=== PATIENT | female | born 1975 | race American Indian/Alaskan Native ===

== ENCOUNTER 2017-04-25 13:12 | Emergency (ER) | payer OTHER, MEDICARE ==
[2017-04-25 13:13] VITALS: BMI 36.0
[2017-04-25 13:22] VITALS: O2SAT 98
[2017-04-25] MEDS ORDERED: Sodium Chloride 0.9% 1,000 ML IV ONE (13:30)
[2017-04-25] MEDS ORDERED: Sodium Chloride 0.9% 1,000 ML ONE (13:38)
[2017-04-25 13:48] VITALS: RESP 18; TEMP 98.4
[2017-04-25 13:49] LABS: BASO # 0.1 K/uL (0.0-0.2); BASO % 1.2 % (0.0-2.0); EOS # 0.4 K/uL (0.0-0.7); EOS % 3.7 % (0.0-4.0); HEMOGLOBIN 12.7 g/dL (11.0-16.0); LYMPH % 29.2 % (20.0-40.0); MEAN CELL VOLUME 85.2 fL (81.0-99.0); MEAN CORPUSCULAR HEMOGLOBIN 27.4 pg (27.0-31.0); MEAN CORPUSCULAR HGB CONC 32.2 g/dL (33.0-37.0); MEAN PLATELET VOLUME 7.9 fL (7.2-11.7); MONO # 0.4 K/uL (0.0-0.8); MONO % 4.2 % (0.0-10.0); NEUT # 6.3 K/uL (1.8-7.0); NEUT % 61.7 % (50.0-75.0); NRBC % 0.1 % (0.0-2.0); RBC 4.62 Mil/uL (3.80-5.20); RED CELL DISTRIBUTION WIDTH 16.1 % (11.5-14.5); WHITE BLOOD COUNT 10.2 K/uL (4.8-10.8)
--- NOTE | 2017-04-25 13:58 | C.PDOC ---
History Of Present Illness 41 y/o female presents to ED with complaints of intermittent dizziness and lightheadedness with associated intermittently darkened vision for 4 days. Patient states Sunday night she had a syncope episode and was taken by EMS to [facility] where she had labs, CT and EKG and was told potassium level was low. Patient was discharged home and instructed to supplement potassium but she states she has loss of appetite and not feeling well since being discharged from ED Sunday and came to ED today for further evaluation. Patient denies new episode of syncope, chest pain, palpitations, weakness or any other complaints at this time. Time Seen by Provider: 04/25/17 13:18 Chief Complaint (Nursing): Dizziness/Lightheaded History Per: Patient History/Exam Limitations: no limitations Onset/Duration Of Symptoms: Days Current Symptoms Are (Timing): Still Present Associated Symptoms Preceding Syncopal Episode: Lightheadedness Past Medical History Reviewed: Historical Data, Nursing Documentation, Vital Signs Vital Signs: Last Vital Signs Temp 98.4 F 04/25/17 13:30 Pulse 83 04/25/17 14:53 Resp 18 04/25/17 14:53 BP 126/74 04/25/17 14:53 Pulse Ox 98 04/25/17 15:00 - Medical History PMH: Depression Surgical History: Appendectomy Family History: States: No Known Family Hx - Social History Hx Alcohol Use: No Hx Substance Use: Yes - Immunization History Hx Influenza Vaccination: No Review Of Systems Except As Marked, All Systems Reviewed And Found Negative. Constitutional: Negative for: Fever, Chills, Weakness Cardiovascular: Negative for: Chest Pain, Palpitations Gastrointestinal: Negative for: Nausea, Vomiting, Diarrhea Neurological: Positive for: Dizziness Physical Exam - Physical Exam Appears: Non-toxic, No Acute Distress Skin: Normal Color, Warm Head: Atraumatic, Normacephalic Eye(s): bilateral: Normal Inspection Oral Mucosa: Moist Cardiovascular: Rhythm Regular, No Murmur Respiratory: Normal Breath Sounds, No Rales, No Rhonchi, No Wheezing Gastrointestinal/Abdominal: Soft, No Tenderness, No Guarding, No Rebound Extremity: Normal ROM, Capillary Refill (<2 seconds) Neurological/Psych: Oriented x3, Normal Speech ED Course And Treatment - Laboratory Results Result Diagrams: 04/25/17 13:46 04/25/17 13:46 Lab Interpretation: Normal ECG: Interpreted By Me ECG Rhythm: Sinus Rhythm ECG Interpretation: No Acute Changes O2 Sat by Pulse Oximetry: 98 (RA) Pulse Ox Interpretation: Normal Reevaluation Time: 15:00 Reassessment Condition: Unchanged (Patient remains asymptomatic in ED.) - Physician Consult Information Time Consulting Physician Contacted: 15:00 Physician Contacted: Lynne Mendoza Outcome Of Conversation: Patient scheduled to have an MRI tomorrow. She will follow up with her after this. Disposition Counseled Patient/Family Regarding: Studies Performed, Diagnosis, Need For Followup - Disposition Referrals: Lynne Mendoza MD [Staff Provider] - Disposition: HOME/ ROUTINE Disposition Time: 15:46 Condition: STABLE Additional Instructions: Keep your appointment for the MRI and follow up with Dr Mendoza tomorrow. Instructions: Dizziness (ED) - Clinical Impression Clinical Impression: Dizziness - Scribe Statement The provider has reviewed the documentation as recorded by the Scribe Noman Lord All medical record entries made by the Garyibe were at my direction and personally dictated by me. I have reviewed the chart and agree that the record accurately reflects my personal performance of the history, physical exam, medical decision making, and the department course for this patient. I have also personally directed, reviewed, and agree with the discharge instructions and disposition.
[2017-04-25 14:00] LABS: ALB/GLOB RATIO 1.1 (1.0-2.1); ALT/SGPT 32 U/L (9-52); AST/SGOT 9 U/L (14-36); BLOOD UREA NITROGEN 5 mg/dL (7-17); GFR AFRICAN-AMERICAN > 60; GFR NON-AFRICAN AMERICAN > 60
[2017-04-25 14:01] LABS: CALCIUM 8.6 mg/dl (8.6-10.4)
[2017-04-25 14:02] LABS: SQUAMOUS EPITHIAL 5 /hpf (0-5); URINE BILIRUBIN NEGATIVE (NEGATIVE); URINE BLOOD NEGATIVE (NEGATIVE); URINE CLARITY Clear (Clear); URINE COLOR Yellow (YELLOW); URINE GLUCOSE (UA) NORMAL (Normal); URINE LEUKOCYTE ESTERASE NEG Leu/uL (Negative); URINE NITRATE NEGATIVE (NEGATIVE); URINE PROTEIN NEGATIVE (NEGATIVE); URINE UROBILINOGEN NORMAL mg/dL (0.2-1.0)
[2017-04-25 14:17] LABS: FREE T4 0.95 ng/dL (0.78-2.19)
[2017-04-25 16:01] VITALS: BP 112/73; PULSE 75
--- NOTE | 2017-04-27 00:27 | CARD ---
APPROVED REPORT EKG Measurement Heart [id number] <Conclusion> Normal sinus rhythm Minimal voltage criteria for LVH, may be normal variant Borderline ECG
== END 2017-04-25 16:01 | disposition home or self-care (01) ==
LOC: C.ER 13:12
DX: R42 Dizziness and giddiness (principal)

== ENCOUNTER 2017-04-27 14:14 | Inpatient (IN) | payer OTHER, MEDICARE ==
[2017-04-27 14:14] VITALS: BMI 36.0
--- NOTE | 2017-04-27 14:50 | C.PDOC ---
History Of Present Illness 41 y/o female referred by Dr. Lynne Mendoza for recurrent syncope and dizziness. Patient reports syncopal episdoes x3. Notes she uses cannibis and cigarettes, which worsens dizziness. Patient was previously seen in [place] 04/23, normal workup and CT, (+) for cannibus use. Patient also evaluated in ER on 04/25/17 , with normal workup. 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 The examination is otherwise unremarkable. Denies fever, chills, nausea, vomiting, new extremity weakness or numbness, or other neurological complaints. Time Seen by Provider: 04/27/17 14:40 Chief Complaint (Nursing): Dizziness/Lightheaded History Per: Patient History/Exam Limitations: no limitations Onset/Duration Of Symptoms: Days, Persistent Current Symptoms Are (Timing): Still Present Fall Associated With With Symptoms: No Recent travel outside of the [place]: No Past Medical History Reviewed: Historical Data, Nursing Documentation, Vital Signs Vital Signs: Last Vital Signs Temp 98.4 F 04/27/17 14:20 Pulse 78 04/27/17 15:00 Resp 18 04/27/17 15:00 BP 111/60 04/27/17 15:00 Pulse Ox 99 04/27/17 16:55 - Medical History PMH: Depression Surgical History: Appendectomy Family History: States: Unknown Family Hx - Social History Hx Alcohol Use: No Hx Substance Use: Yes - Immunization History Hx Influenza Vaccination: No Review Of Systems Constitutional: Negative for: Fever, Chills Cardiovascular: Negative for: Chest Pain Respiratory: Negative for: Shortness of Breath Musculoskeletal: Negative for: Neck Pain Skin: Negative for: Rash Neurological: Positive for: Dizziness, Other (syncopal episodes ). Negative for : Weakness, Numbness, Headache Physical Exam - Physical Exam Appears: Non-toxic, No Acute Distress, Other (obese, black woman) Skin: Normal Color, Warm, Dry Head: Atraumatic, Normacephalic, Other (no exacerbation of dizziness with lateral head movement / rotation) Eye(s): bilateral: Normal Inspection, PERRL, EOMI Ear(s): Bilateral: Normal Nose: Normal Oral Mucosa: Moist Neck: Normal ROM, No Midline Cervical Tenderness, No Paracervical Tenderness, Supple Chest: Symmetrical Cardiovascular: Rhythm Regular Respiratory: Normal Breath Sounds, No Rales, No Rhonchi, No Wheezing Gastrointestinal/Abdominal: Soft, No Tenderness, No Guarding, No Rebound Back: Normal Inspection Extremity: Normal ROM, Capillary Refill (< 2 sec.) Neurological/Psych: Oriented x3, Normal Speech, Normal Cognition, Cerebellar Signs, Normal Motor, Normal Sensation, Other (neuro intact) ED Course And Treatment - Laboratory Results Result Diagrams: 04/27/17 15:11 04/27/17 15:11 Lab Interpretation: Normal (tox + THC) ECG: Interpreted By Me ECG Rhythm: Sinus Rhythm ECG Interpretation: Normal Rate From EC O2 Sat by Pulse Oximetry: 99 (RA) Pulse Ox Interpretation: Normal - Radiology CXR: Interpreted by Me CXR Interpretation: Yes: No Acute Disease Progress Note: d/w PMD Dr. Mendoza @ 1500, On Blue list- ok to adm to [facility] [employer] [facility]- Dr. Benji Lo Reevaluation Time: 16:49 Reassessment Condition: Improved Medical Decision Making Medical Decision Making: recurrent dizziness, syncope x 3, normal exam, + THC, smokes 1ppd consider cardiological etiology- tele obs Disposition Doctor Will See Patient In The: Hospital Counseled Patient/Family Regarding: Studies Performed, Diagnosis - Disposition Disposition: HOSPITALIZED Disposition Time: 16:55 Condition: GOOD - Clinical Impression Clinical Impression: Dizziness, Syncope - Scribe Statement The provider has reviewed the documentation as recorded by the Mendoza Clement Provider Attestation: All medical record entries made by the Mendoza were at my direction and personally dictated by me. I have reviewed the chart and agree that the record accurately reflects my personal performance of the history, physical exam, medical decision making, and the department course for this patient. I have also personally directed, reviewed, and agree with the discharge instructions and disposition.
[2017-04-27 15:16] LABS: BASO # 0.1 K/uL (0.0-0.2); BASO % 1.1 % (0.0-2.0); EOS # 0.3 K/uL (0.0-0.7); EOS % 3.3 % (0.0-4.0); HEMOGLOBIN 12.6 g/dL (11.0-16.0); LYMPH # 2.8 K/uL (1.0-4.3); MEAN CELL VOLUME 85.8 fL (81.0-99.0); MEAN CORPUSCULAR HEMOGLOBIN 27.6 pg (27.0-31.0); MEAN CORPUSCULAR HGB CONC 32.2 g/dL (33.0-37.0); MEAN PLATELET VOLUME 8.2 fL (7.2-11.7); MONO # 0.6 K/uL (0.0-0.8); MONO % 6.5 % (0.0-10.0); NEUT # 5.3 K/uL (1.8-7.0); NEUT % 58.1 % (50.0-75.0); RBC 4.57 Mil/uL (3.80-5.20); RED CELL DISTRIBUTION WIDTH 16.3 % (11.5-14.5); WHITE BLOOD COUNT 9.1 K/uL (4.8-10.8)
[2017-04-27 15:20] LABS: SQUAMOUS EPITHIAL 5 /hpf (0-5); URINE BILIRUBIN NEGATIVE (NEGATIVE); URINE BLOOD NEGATIVE (NEGATIVE); URINE CLARITY Hazy (Clear); URINE COLOR Yellow (YELLOW); URINE GLUCOSE (UA) NORMAL (Normal); URINE LEUKOCYTE ESTERASE NEG Leu/uL (Negative); URINE NITRATE NEGATIVE (NEGATIVE); URINE PROTEIN NEGATIVE (NEGATIVE); URINE UROBILINOGEN NORMAL mg/dL (0.2-1.0)
[2017-04-27 15:25] LABS: BENZODIAZEPINES, UR NEGATIVE (NEGATIVE)
[2017-04-27 15:27] LABS: ALBUMIN 4.1 g/dL (3.5-5.0); BARBITURATES, UR NEGATIVE (NEGATIVE)
[2017-04-27 15:29] LABS: ALB/GLOB RATIO 1.3 (1.0-2.1); AST/SGOT 13 U/L (14-36); GFR AFRICAN-AMERICAN > 60; GFR NON-AFRICAN AMERICAN > 60
[2017-04-27 15:30] LABS: ALT/SGPT 33 U/L (9-52); BLOOD UREA NITROGEN 6 mg/dL (7-17); CALCIUM 8.7 mg/dl (8.6-10.4); PHENCYCLIDINE, UR NEGATIVE (NEGATIVE)
[2017-04-27 15:43] LABS: OPIATES, UR NEGATIVE (NEGATIVE)
--- NOTE | 2017-04-27 16:10 | RAD ---
PROCEDURE: CHEST RADIOGRAPH, 1 VIEW HISTORY: SOB COMPARISON: None available. FINDINGS: LUNGS: Clear. PLEURA: No pneumothorax or pleural fluid seen. CARDIOVASCULAR: Normal. OSSEOUS STRUCTURES: No significant abnormalities. VISUALIZED UPPER ABDOMEN: Normal. OTHER FINDINGS: None. IMPRESSION: No active disease.
--- NOTE | 2017-04-27 18:35 | CP.PCM.HP ---
Past Patient History - Past Social History Smoking Status: Light Smoker < 10 Cigarettes Daily - CARDIAC Hx Cardiac Disorders: Yes Other/Comment: 'SLIGHT BLOCKAGE' - PULMONARY Hx Respiratory Disorders: No - NEUROLOGICAL Hx Neurological Disorder: Yes Hx Dizziness: Yes - HEENT Hx HEENT Problems: Yes Other/Comment: WEARS GLASSES - RENAL Hx Chronic Kidney Disease: No - ENDOCRINE/METABOLIC Hx Endocrine Disorders: No - HEMATOLOGICAL/ONCOLOGICAL Hx Blood Disorders: No - INTEGUMENTARY Hx Dermatological Problems: No - MUSCULOSKELETAL/RHEUMATOLOGICAL Hx Musculoskeletal Disorders: No - GASTROINTESTINAL Hx Gastrointestinal Disorders: No - GENITOURINARY/GYNECOLOGICAL Hx Genitourinary Disorders: No - PSYCHIATRIC Hx Depression: Yes Hx Substance Use: Yes - SURGICAL HISTORY Hx Appendectomy: Yes - ANESTHESIA Hx Anesthesia: Yes Hx Anesthesia Reactions: No Meds Allergies/Adverse Reactions: Allergies Allergy/AdvReac Type Severity Reaction Status Date / Time No Known Allergies Allergy Verified 04/25/17 13:15 Results - Vital Signs Recent Vital Signs: Last Vital Signs Temp 99.1 F 04/27/17 17:31 Pulse 74 04/27/17 17:31 Resp 20 04/27/17 17:31 BP 110/67 04/27/17 17:31 Pulse Ox 97 04/27/17 17:31 - Labs Result Diagrams: 04/27/17 15:11 04/27/17 15:11 Labs: Laboratory Results - last 24 hr 04/27/17 04/27/17 04/27/17 15:11 15:11 15:11 WBC 9.1 RBC 4.57 Hgb 12.6 Hct 39.2 MCV 85.8 MCH 27.6 MCHC 32.2 L RDW 16.3 H Plt Count 245 MPV 8.2 Neut % (Auto) 58.1 Lymph % (Auto) 31.0 [place] % (Auto) 6.5 Eos % (Auto) 3.3 Baso % (Auto) 1.1 Neut # 5.3 Lymph # 2.8 [place] # 0.6 Eos # 0.3 Baso # 0.1 Sodium 137 Potassium 3.8 Chloride 101 Carbon Dioxide 24 Anion Gap 16 BUN 6 L Creatinine 0.6 L Est GFR ( Amer) > 60 Est GFR (Non-Af Amer) > 60 Random Glucose 92 Calcium 8.7 Total Bilirubin 0.4 AST 13 L D ALT 33 Alkaline Phosphatase 99 Total Protein 7.3 Albumin 4.1 Globulin 3.2 Albumin/Globulin Ratio 1.3 Urine Color Yellow Urine Clarity Hazy Urine pH 5.0 Ur Specific [place] 1.021 Urine Protein Negative Urine Glucose (UA) Normal Urine Ketones Trace Urine Blood Negative Urine Nitrate Negative Urine Bilirubin Negative Urine Urobilinogen Normal Ur Leukocyte Esterase Neg Urine WBC (Auto) 3 Urine RBC (Auto) 1 Ur Squamous Epith Cells 5 Urine Opiates Screen Urine Methadone Screen Ur Barbiturates Screen Ur Phencyclidine Scrn Ur Amphetamines Screen U Benzodiazepines Scrn U Oth Cocaine Metabols U Cannabinoids Screen Alcohol, Quantitative < 10 04/27/17 15:11 WBC RBC Hgb Hct MCV MCH MCHC RDW Plt Count MPV Neut % (Auto) Lymph % (Auto) [place] % (Auto) Eos % (Auto) Baso % (Auto) Neut # Lymph # [place] # Eos # Baso # Sodium Potassium Chloride Carbon Dioxide Anion Gap BUN Creatinine Est GFR ( Amer) Est GFR (Non-Af Amer) Random Glucose Calcium Total Bilirubin AST ALT Alkaline Phosphatase Total Protein Albumin Globulin Albumin/Globulin Ratio Urine Color Urine Clarity Urine pH Ur Specific [place] Urine Protein Urine Glucose (UA) Urine Ketones Urine Blood Urine Nitrate Urine Bilirubin Urine Urobilinogen Ur Leukocyte Esterase Urine WBC (Auto) Urine RBC (Auto) Ur Squamous Epith Cells Urine Opiates Screen Negative Urine Methadone Screen Negative Ur Barbiturates Screen Negative Ur Phencyclidine Scrn Negative Ur Amphetamines Screen Negative U Benzodiazepines Scrn Negative U Oth Cocaine Metabols Negative U Cannabinoids Screen Positive Alcohol, Quantitative
--- NOTE | 2017-04-27 23:20 | CP.PCM.CON ---
History of Present Illness - History of Present Illness History of Present Illness: 41 y/o female referred by Dr. Lynne Mendoza for recurrent syncope and dizziness. Patient reports syncopal episdoes x3. Notes she uses cannibis and cigarettes, which worsens dizziness. Patient was previously seen in [place] 04/23 , normal workup and CT, (+) for cannabis use. Patient also evaluated in ER on 04/25/17, with normal workup. She is known to have migraine Headache for many years and these days she has been suffering from her migraine, bifrontal Headache, throbbing, with photophobia, sonophobia, lasting few hours, relieved by sleep. She was abusing Marijuana. She was admitted to [facility] for feeling dizzy, sense of spinning, means Vertigo spells. She suffered up to 2 to 3 spells of syncope, consisting of Loss of Consciousness( LOC), Loss of Posture(LOP) each was following a migraine Headache spell and was lasting less than 1 to 2 minutes. 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 The examination is otherwise unremarkable. Denies fever, chills, nausea, vomiting, new extremity weakness or numbness, or other neurological complaints. Time Seen by Provider: 04/27/17 14:40 Chief Complaint (Nursing): Dizziness/Lightheaded History Per: Patient History/Exam Limitations: no limitations Onset/Duration Of Symptoms: Days, Persistent Current Symptoms Are (Timing): Still Present Fall Associated With With Symptoms: No Recent travel outside of the [place]: No Past Medical History Reviewed: Historical Data, Nursing Documentation, Vital Signs Vital Signs: Last Vital Signs Temp 98.4 F 04/27/17 14:20 Pulse 78 04/27/17 15:00 Resp 18 04/27/17 15:00 BP 111/60 04/27/17 15:00 Pulse Ox 99 04/27/17 16:55 - Medical History PMH: Depression, Migraine Headache, Obesity, High Cholesterol, Hypothyroidism, Marijuana abuse. Patient is and has 2 children and lives with her and children. 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 Surgical History: Appendectomy Family History: States: Unknown Family Hx - Social History Hx Alcohol Use: No Hx Substance Use: Yes Marijuana. - Immunization History Hx Influenza Vaccination: No Review Of Systems Constitutional: Negative for: Fever, Chills Cardiovascular: Negative for: Chest Pain Respiratory: Negative for: Shortness of Breath Musculoskeletal: Negative for: Neck Pain Skin: Negative for: Rash Neurological: Positive for: Dizziness, Other (syncopal episodes ). Negative for : Weakness, Numbness, Headache Physical Exam - Physical Exam Appears: Non-toxic, No Acute Distress, Other (obese, black woman) Skin: Normal Color, Warm, Dry Head: Atraumatic, Normacephalic, Other (no exacerbation of dizziness with lateral head movement / rotation) Eye(s): bilateral: Normal Inspection, PERRL, EOMI Ear(s): Bilateral: Normal Nose: Normal Oral Mucosa: Moist Neck: Normal ROM, No Midline Cervical Tenderness, No Paracervical Tenderness, Supple Chest: Symmetrical Cardiovascular: Rhythm Regular Respiratory: Normal Breath Sounds, No Rales, No Rhonchi, No Wheezing Gastrointestinal/Abdominal: Soft, No Tenderness, No Guarding, No Rebound Back: Normal Inspection Extremity: Normal ROM, Capillary Refill (< 2 sec.) Neurological/Psych: Oriented x3, Normal Speech, Normal Cognition, Cerebellar Signs, Normal Motor, Normal Sensation, Other (neuro intact) Lab Interpretation: Normal (tox + THC) ECG: Interpreted By Co ECG Rhythm: Sinus Rhythm ECG Interpretation: Normal Rate From EC O2 Sat by Pulse Oximetry: 99 (RA) Pulse Ox Interpretation: Normal - Radiology CXR: Interpreted by Me CXR Interpretation: Yes: No Acute Disease Progress Note: d/w PMD Dr. Mendoza @ 1500, On [employer] list- ok to adm to [facility] [employer]- Dr. Benji Lo Reevaluation Time: 16:49 Reassessment Condition: Improved Medical Decision Making Medical Decision Making: recurrent dizziness, syncope x 3, normal exam, + THC, smokes 1ppd consider cardiological etiology- tele obs ECG Rhythm: Sinus Rhythm ECG Interpretation: Normal Rate From EC O2 Sat by Pulse Oximetry: 99 (RA) Pulse Ox Interpretation: Normal - Radiology CXR: Interpreted by Me CXR Interpretation: Yes: No Acute Disease Progress Note: d/w PMD Dr. Mendoza @ 1500, On [employer] list- ok to adm to [facility] [employer]- Dr. Benji Lo Reevaluation Time: 16:49 Reassessment Condition: Improved Medical Decision Making Medical Decision Making: recurrent dizziness, syncope x 3, normal exam, + THC, smokes 1ppd consider cardiological etiology- tele obs Disposition Doctor Will See Patient In The: Hospital Counseled Patient/Family Regarding: Studies Performed, Diagnosis - Disposition Disposition: HOSPITALIZED Disposition Time: 16:55 Condition: GOOD - Clinical Impression Clinical Impression: Dizziness, Syncope Past Patient History - Past Social History Smoking Status: Current Some Days Smoker - CARDIAC Hx Cardiac Disorders: Yes Other/Comment: 'SLIGHT BLOCKAGE' - PULMONARY Hx Respiratory Disorders: No - NEUROLOGICAL Hx Neurological Disorder: Yes Hx Dizziness: Yes - HEENT Hx HEENT Problems: Yes Other/Comment: WEARS GLASSES - RENAL Hx Chronic Kidney Disease: No - ENDOCRINE/METABOLIC Hx Endocrine Disorders: No - HEMATOLOGICAL/ONCOLOGICAL Hx Blood Disorders: No - INTEGUMENTARY Hx Dermatological Problems: No - MUSCULOSKELETAL/RHEUMATOLOGICAL Hx Musculoskeletal Disorders: No Hx Falls: Yes - GASTROINTESTINAL Hx Gastrointestinal Disorders: No - GENITOURINARY/GYNECOLOGICAL Hx Genitourinary Disorders: No - PSYCHIATRIC Hx Depression: Yes Hx Substance Use: Yes (Marijuana) - SURGICAL HISTORY Hx Appendectomy: Yes - ANESTHESIA Hx Anesthesia: Yes Hx Anesthesia Reactions: No Meds Allergies/Adverse Reactions: Allergies Allergy/AdvReac Type Severity Reaction Status Date / Time No Known Allergies Allergy Verified 04/25/17 13:15 - Medications Medications: Current Medications Aripiprazole (Abilify) 5 mg PO DAILY [facility] Clonazepam (Klonopin) 2 mg PO HS [facility] Last Admin: 04/27/17 21:58 Dose: 2 mg [place] Carbonate ([place] Carbonate 300mg) 600 mg PO HS [facility] Last Admin: 04/27/17 21:17 Dose: 600 mg Meclizine HCl (Antivert) 25 mg PO Q8 [facility] Last Admin: 04/27/17 21:17 Dose: 25 mg Pantoprazole Sodium (Protonix Ec Tab) 40 mg PO DAILY [facility] Physical Exam - Neurological Exam Additional comments: Obese Mental Status: Patient is awake Alert, Oriented X 3 Fluent Coherent speech Normal Judgment Cranial Nerves II to XII: No Deficits, no Nystagmus Motor: Neck movements are limited Normal Tone, Power, muscle bulk DTR 0 to 1/4 toes are down going Cerebellar: Normal FNT Sensory: No deficits Stature and Gait: Not tested, but is reported to be normal. Results - Vital Signs Recent Vital Signs: Last Vital Signs Temp 99.1 F 04/27/17 17:31 Pulse 74 04/27/17 19:52 Resp 20 04/27/17 17:31 BP 110/67 04/27/17 17:31 Pulse Ox 97 04/27/17 17:31 - Labs Result Diagrams: 04/27/17 15:11 04/27/17 15:11 Labs: Laboratory Results - last 24 hr 04/27/17 04/27/17 04/27/17 15:11 15:11 15:11 WBC 9.1 RBC 4.57 Hgb 12.6 Hct 39.2 MCV 85.8 MCH 27.6 MCHC 32.2 L RDW 16.3 H Plt Count 245 MPV 8.2 Neut % (Auto) 58.1 Lymph % (Auto) 31.0 [place] % (Auto) 6.5 Eos % (Auto) 3.3 Baso % (Auto) 1.1 Neut # 5.3 Lymph # 2.8 [place] # 0.6 Eos # 0.3 Baso # 0.1 Sodium 137 Potassium 3.8 Chloride 101 Carbon Dioxide 24 Anion Gap 16 BUN 6 L Creatinine 0.6 L Est GFR ( Amer) > 60 Est GFR (Non-Af Amer) > 60 Random Glucose 92 Calcium 8.7 Total Bilirubin 0.4 AST 13 L D ALT 33 Alkaline Phosphatase 99 Troponin I Total Protein 7.3 Albumin 4.1 Globulin 3.2 Albumin/Globulin Ratio 1.3 Urine Color Yellow Urine Clarity Hazy Urine pH 5.0 Ur Specific [place] 1.021 Urine Protein Negative Urine Glucose (UA) Normal Urine Ketones Trace Urine Blood Negative Urine Nitrate Negative Urine Bilirubin Negative Urine Urobilinogen Normal Ur Leukocyte Esterase Neg Urine WBC (Auto) 3 Urine RBC (Auto) 1 Ur Squamous Epith Cells 5 Urine HCG, Qual Urine Opiates Screen Urine Methadone Screen Ur Barbiturates Screen Ur Phencyclidine Scrn Ur Amphetamines Screen U Benzodiazepines Scrn U Oth Cocaine Metabols U Cannabinoids Screen Alcohol, Quantitative < 10 04/27/17 04/27/17 04/27/17 15:11 19:57 20:04 WBC RBC Hgb Hct MCV MCH MCHC RDW Plt Count MPV Neut % (Auto) Lymph % (Auto) [place] % (Auto) Eos % (Auto) Baso % (Auto) Neut # Lymph # [place] # Eos # Baso # Sodium Potassium Chloride Carbon Dioxide Anion Gap BUN Creatinine Est GFR ( Amer) Est GFR (Non-Af Amer) Random Glucose Calcium Total Bilirubin AST ALT Alkaline Phosphatase Troponin I < 0.0120 Total Protein Albumin Globulin Albumin/Globulin Ratio Urine Color Urine Clarity Urine pH Ur Specific [place] Urine Protein Urine Glucose (UA) Urine Ketones Urine Blood Urine Nitrate Urine Bilirubin Urine Urobilinogen Ur Leukocyte Esterase Urine WBC (Auto) Urine RBC (Auto) Ur Squamous Epith Cells Urine HCG, Qual Negative Urine Opiates Screen Negative Urine Methadone Screen Negative Ur Barbiturates Screen Negative Ur Phencyclidine Scrn Negative Ur Amphetamines Screen Negative U Benzodiazepines Scrn Negative U Oth Cocaine Metabols Negative U Cannabinoids Screen Positive Alcohol, Quantitative Assessment & Plan (1) Dizziness Assessment and Plan: R/O Arrhythmia, R/O Radiculopathy, Drug Abuse Status: Acute (2) Syncope Assessment and Plan: R/O Sezures. R/O Miscellaneous causes, cardiac causes. H/O 2 to 3 spells of Syncope with LOP, LOC. R/O Seizures Get work up for seizures. Status: Acute (3) CVA (cerebral vascular accident) Assessment and Plan: It Has to be ruled out by neuro imaging, Lab work H/O Vascular lesion in the Brain vs a Cavernous angioma of the Left Frontal lobe. Will get more tests. Status: Acute (4) Vertigo Assessment and Plan: R/O BPPV Get PT R/O Cervical Radiculopathy H/O Vertigo and Toxic drug abuse ( Marijuana) H/O Migraine Headache can present also with Vertigo. Status: Acute
[2017-04-28 07:09] LABS: HDL CHOLESTEROL 25 mg/dL (30-70); URIC ACID 4.5 mg/dL (2.2-7.5)
[2017-04-28 07:21] LABS: LDL CHOLESTEROL 175 mg/dL (0-129)
[2017-04-28 07:25] LABS: T4 8.56 ug/dL (5.5-11.0)
[2017-04-28 07:39] LABS: T3 1.56 nmol/L (1.49-2.60)
[2017-04-28 08:32] LABS: HIV 1&2 ANTIBODY NEGATIVE (NEGATIVE)
[2017-04-28] MEDS: Pantoprazole 40 mg EC Tab PO SCH (09:35)
[2017-04-28] MEDS ORDERED: Iodixanol 320 MG/ML 100 ML BOTTLE IV ONE (11:54)
--- NOTE | 2017-04-28 13:24 | CT ---
PROCEDURE: CT Angiography of the Brain. 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 TECHNIQUE: CT angiography of the intracranial arteries was performed. Coronal and sagittal maximum intensity projection reformated images were generated. This CT exam was performed using one or more of the following dose reduction techniques: Automated exposure control, adjustment of the mA and/or kV according to patient size, and/or use of iterative reconstruction technique. FINDINGS: INTERNAL CEREBRAL ARTERIES: Unremarkable. The skull base, petrous, cavernous and supraclinoid segments are bilaterally widely patient. ANTERIOR CEREBRAL ARTERIES: Unremarkable. A1 and A2 segments are widely patent. Smaller distal branches unremarkable, as visualized. MIDDLE CEREBRAL ARTERIES: Unremarkable. M1 and M2 segments are widely patent. Perisylvian branches grossly symmetric. POSTERIOR CIRCULATION: Basilar Artery: Unremarkable. Distal Vertebral Arteries: Unremarkable. Posterior Cerebral Arteries: Unremarkable. Posterior Inferior Cerebellar Arteries: Unremarkable. ANEURYSM/ VASCULAR MALFORMATIONS: None. OTHER FINDINGS: No CT evidence of vascular anomaly in the brain. No evidence of enhancing mass lesion mass effect or midline shift. IMPRESSION: Unremarkable CT Angiography of the Brain. That MRI is more sensitive to evaluate for small fast in the brain.
--- NOTE | 2017-04-28 14:47 | CP.PCM.PN ---
Subjective - Date & Time of Evaluation Date of Evaluation: 04/28/17 Time of Evaluation: 12:00 - Subjective Subjective: clinically same Objective - Vital Signs/Intake and Output Vital Signs (last 24 hours): Temp Pulse Resp BP Pulse Ox 98.2 F 79 20 95/63 L 99 04/28/17 07:00 04/28/17 07:00 04/28/17 07:00 04/28/17 07:00 04/28/17 07:00 - Medications Medications: Current Medications Aripiprazole (Abilify) 5 mg PO DAILY [facility] Last Admin: 04/28/17 09:35 Dose: 5 mg Clonazepam (Klonopin) 2 mg PO HS [facility] Last Admin: 04/27/17 21:58 Dose: 2 mg [place] Carbonate ([place] Carbonate 300mg) 600 mg PO HS [facility] Last Admin: 04/27/17 21:17 Dose: 600 mg Meclizine HCl (Antivert) 25 mg PO Q8 [facility] Last Admin: 04/28/17 13:11 Dose: 25 mg Pantoprazole Sodium (Protonix Ec Tab) 40 mg PO DAILY [facility] Last Admin: 04/28/17 09:35 Dose: 40 mg - Labs Labs: 04/27/17 15:11 04/27/17 15:11 - Constitutional Appears: Well - Head Exam Head Exam: ATRAUMATIC, NORMAL INSPECTION, NORMOCEPHALIC - Eye Exam Eye Exam: EOMI, Normal appearance, PERRL Pupil Exam: NORMAL ACCOMODATION, PERRL - ENT Exam ENT Exam: Mucous Membranes Moist, Normal Exam - Neck Exam Neck Exam: Full ROM, Normal Inspection. absent: Lymphadenopathy - Respiratory Exam Respiratory Exam: Decreased Breath Sounds - Cardiovascular Exam Cardiovascular Exam: REGULAR RHYTHM, +S1, +S2 - GI/Abdominal Exam GI & Abdominal Exam: Soft, Diminished Bowel Sounds - Rectal Exam Rectal Exam: Deferred
--- NOTE | 2017-04-28 22:23 | CP.PCM.PN ---
Subjective - Date & Time of Evaluation Date of Evaluation: 04/28/17 Time of Evaluation: 21:00 - Subjective Subjective: IMPRESSION of CTA Brain: Unremarkable CT Angiography of the Brain. Notice that MRI is more sensitive to evaluate for small fast in the brain. She had apparently a previous recent MRA Brain. We might repeat it to check for any findings. TFT are normal. Lipid profile is borderline elevated. She is feeling better. She has a very low Vitamin D She is receiving treatment for Bipolar disorder. Objective - Vital Signs/Intake and Output Vital Signs (last 24 hours): Temp Pulse Resp BP Pulse Ox 98.2 F 84 20 107/74 99 04/28/17 15:00 04/28/17 15:45 04/28/17 15:00 04/28/17 15:00 04/28/17 07:00 - Medications Medications: Current Medications Aripiprazole (Abilify) 5 mg PO DAILY [facility] Last Admin: 04/28/17 09:35 Dose: 5 mg Clonazepam (Klonopin) 2 mg PO HS [facility] Last Admin: 04/28/17 21:19 Dose: 2 mg [place] Carbonate ([place] Carbonate 300mg) 600 mg PO HS [facility] Last Admin: 04/28/17 21:19 Dose: 600 mg Meclizine HCl (Antivert) 25 mg PO Q8 [facility] Last Admin: 04/28/17 21:19 Dose: 25 mg Pantoprazole Sodium (Protonix Ec Tab) 40 mg PO DAILY [facility] Last Admin: 04/28/17 09:35 Dose: 40 mg - Labs Labs: 04/27/17 15:11 04/27/17 15:11 Assessment and Plan (1) Dizziness Status: Acute (2) Syncope Status: Acute (3) CVA (cerebral vascular accident) Status: Acute (4) Vertigo Status: Acute
[2017-04-28] MEDS ORDERED: Ergocalciferol 50,000 Intl Units Cap PO SCH (22:30)
[2017-04-29] MEDS ORDERED: Ergocalciferol 50,000 Intl Units Cap PO SCH (00:30)
[2017-04-29] MEDS: Pantoprazole 40 mg EC Tab PO SCH (09:31)
--- NOTE | 2017-04-29 16:08 | CP.PCM.PN ---
Subjective - Date & Time of Evaluation Date of Evaluation: 04/29/17 Time of Evaluation: 16:05 - Subjective Subjective: Patient is not in pain or distress. She has no significant Vertigo or Migraine Headache. She is receiving medicine for Bipolar and for Vitamin D deficiency. 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 She has high LDL and high Serum Cholesterol and needs to be started on Po Crestor. Objective - Vital Signs/Intake and Output Vital Signs (last 24 hours): Temp Pulse Resp BP Pulse Ox 98.6 F 77 20 94/62 L 99 04/29/17 15:06 04/29/17 15:06 04/29/17 15:06 04/29/17 15:06 04/29/17 15:06 - Medications Medications: Current Medications Aripiprazole (Abilify) 5 mg PO DAILY [facility] Last Admin: 04/29/17 09:31 Dose: 5 mg Calcium Carbonate (Oscal) 500 mg PO BID [facility] Last Admin: 04/29/17 09:31 Dose: 500 mg Clonazepam (Klonopin) 2 mg PO HS [facility] Last Admin: 04/28/17 21:19 Dose: 2 mg Ergocalciferol (Drisdol 50,000 Intl Units Cap) 1 cap PO Q7D [facility] Last Admin: 04/29/17 00:24 Dose: 1 cap [place] Carbonate ([place] Carbonate 300mg) 600 mg PO HS [facility] Last Admin: 04/28/17 21:19 Dose: 600 mg Meclizine HCl (Antivert) 25 mg PO Q8 [facility] Last Admin: 04/29/17 14:02 Dose: 25 mg Pantoprazole Sodium (Protonix Ec Tab) 40 mg PO DAILY [facility] Last Admin: 04/29/17 09:31 Dose: 40 mg - Labs Labs: 04/27/17 15:11 04/27/17 15:11 Assessment and Plan (1) Dizziness Status: Acute (2) Syncope Status: Acute (3) CVA (cerebral vascular accident) Status: Acute (4) Vertigo Status: Acute
--- NOTE | 2017-04-29 21:26 | CP.PCM.PN ---
Subjective - Date & Time of Evaluation Date of Evaluation: 04/29/17 Time of Evaluation: 11:10 - Subjective Subjective: clinically same Objective - Vital Signs/Intake and Output Vital Signs (last 24 hours): Temp Pulse Resp BP Pulse Ox 98.6 F 77 20 94/62 L 99 04/29/17 15:06 04/29/17 15:06 04/29/17 15:06 04/29/17 15:06 04/29/17 15:06 - Medications Medications: Current Medications Aripiprazole (Abilify) 5 mg PO DAILY [facility] Last Admin: 04/29/17 09:31 Dose: 5 mg Calcium Carbonate (Oscal) 500 mg PO BID [facility] Last Admin: 04/29/17 17:39 Dose: 500 mg Clonazepam (Klonopin) 2 mg PO [facility] Last Admin: 04/28/17 21:19 Dose: 2 mg Ergocalciferol (Drisdol 50,000 Intl Units Cap) 1 cap PO Q7D [facility] Last Admin: 04/29/17 00:24 Dose: 1 cap [place] Carbonate ([place] Carbonate 300mg) 600 mg PO HS [facility] Last Admin: 04/28/17 21:19 Dose: 600 mg Meclizine HCl (Antivert) 25 mg PO Q8 [facility] Last Admin: 04/29/17 14:02 Dose: 25 mg Pantoprazole Sodium (Protonix Ec Tab) 40 mg PO DAILY [facility] Last Admin: 04/29/17 09:31 Dose: 40 mg Rosuvastatin Calcium (Crestor) 10 mg PO [facility] - Labs Labs: 04/27/17 15:11 04/27/17 15:11
[2017-04-30] MEDS: Pantoprazole 40 mg EC Tab PO SCH (10:53)
--- NOTE | 2017-04-30 11:29 | CP.PCM.PN ---
Subjective - Date & Time of Evaluation Date of Evaluation: 04/30/17 Time of Evaluation: 12:00 - Subjective Subjective: clinically same Objective - Vital Signs/Intake and Output Vital Signs (last 24 hours): Temp Pulse Resp BP Pulse Ox 98.1 F 80 18 98/64 L 97 04/30/17 09:03 04/30/17 09:03 04/30/17 09:03 04/30/17 09:03 04/30/17 09:03 - Medications Medications: Current Medications Aripiprazole (Abilify) 5 mg PO DAILY [facility] Last Admin: 04/30/17 10:53 Dose: 5 mg Calcium Carbonate (Oscal) 500 mg PO BID [facility] Last Admin: 04/30/17 10:53 Dose: 500 mg Clonazepam (Klonopin) 2 mg PO [facility] Last Admin: 04/29/17 21:49 Dose: 2 mg Ergocalciferol (Drisdol 50,000 Intl Units Cap) 1 cap PO Q7D [facility] Last Admin: 04/29/17 00:24 Dose: 1 cap [place] Carbonate ([place] Carbonate 300mg) 600 mg PO [facility] Last Admin: 04/29/17 21:48 Dose: 600 mg Meclizine HCl (Antivert) 25 mg PO Q8 [facility] Last Admin: 04/30/17 06:00 Dose: 25 mg Pantoprazole Sodium (Protonix Ec Tab) 40 mg PO DAILY [facility] Last Admin: 04/30/17 10:53 Dose: 40 mg Rosuvastatin Calcium (Crestor) 10 mg PO [facility] Last Admin: 04/29/17 21:49 Dose: 10 mg - Labs Labs: 04/27/17 15:11 04/27/17 15:11 - Constitutional Appears: Well - Head Exam Head Exam: ATRAUMATIC, NORMAL INSPECTION, NORMOCEPHALIC - Eye Exam Eye Exam: EOMI, Normal appearance, PERRL Pupil Exam: NORMAL ACCOMODATION, PERRL - ENT Exam ENT Exam: Mucous Membranes Moist, Normal Exam - Neck Exam Neck Exam: Full ROM, Normal Inspection. absent: Lymphadenopathy - Respiratory Exam Respiratory Exam: Decreased Breath Sounds - Cardiovascular Exam Cardiovascular Exam: REGULAR RHYTHM, +S1, +S2 - GI/Abdominal Exam GI & Abdominal Exam: Soft, Diminished Bowel Sounds - Rectal Exam Rectal Exam: Deferred
--- NOTE | 2017-04-30 12:47 | CARD ---
APPROVED REPORT EKG Measurement Heart [id number] <Conclusion> Normal sinus rhythm Normal ECG
--- NOTE | 2017-04-30 13:22 | VASCLAB ---
PROCEDURE: HISTORY: R/O CVA, Dizziness, Recurrent syncope episodes COMPARISON: None available. TECHNIQUE: Grayscale and duplex Doppler evaluation of the cervical carotid and vertebral arteries were performed. The common carotid, carotid bifurcations and cervical Internal Carotid Artery (ICA) and proximal External Carotid Artery (ECA) were evaluated. The vertebral arteries were evaluated for gross patency and flow direction. Report prepared by Fili Moser, T FINDINGS: RIGHT CAROTID ARTERIES: 1. Common Carotid Artery: No significant focal plaque formation of the right common carotid artery. Maximum Peak Systolic velocity: 82.8 cm/sec: End-diastolic velocity 21.0 cm/sec. 2. Carotid Bifurcation: None plaque formation. Maximum Peak Systolic velocity: 89.6 cm/sec: End-diastolic velocity 22.6 cm/sec. 3. Internal Carotid Artery: Plaque description: None 3.1. Proximal Segment: Peak systolic velocity 43.2 cm/sec: End-diastolic velocity 15.8 cm/sec - % stenosis 3.2. Middle Segment: Peak systolic velocity 70.7 cm/sec: End-diastolic velocity 24.4 cm/sec - % stenosis 3.3. Distal Segment: Peak systolic velocity 85.1 cm/sec: End-diastolic velocity 30.4 cm/sec - % stenosis 4. External Carotid Artery: No significant focal plaque formation. Peak systolic velocity 74.1 cm/sec 5. ICA/CCA Ratio: 1.1 LEFT CAROTID ARTERIES: 1. Common Carotid Artery: No significant focal plaque formation of the left common carotid artery. Maximum Peak Systolic velocity: 77.6 cm/sec: End-diastolic velocity 20.9 cm/sec. 2. Carotid Bifurcation: None plaque formation. Maximum Peak Systolic velocity: 74.1 cm/sec: End-diastolic velocity 19.2 cm/sec. 3. Internal Carotid Artery: Plaque description: None 3.1. Proximal Segment: Peak systolic velocity 69.0 cm/sec: End-diastolic velocity 26.1 cm/sec - % stenosis 3.2. Middle Segment: Peak systolic velocity 93.0 cm/sec: End-diastolic velocity 29.5 cm/sec - % stenosis 3.3. Distal Segment: Peak systolic velocity 67.8 cm/sec: End-diastolic velocity 22.8 cm/sec - % stenosis 4. External Carotid Artery: No significant focal plaque formation. Peak systolic velocity 72.4 cm/sec 5. ICA/CCA Ratio: 1.2 VERTEBRAL ARTERIES: 1. Right Vertebral Artery: The right vertebral artery flow direction is antegrade. 2. Left Vertebral Artery: The left vertebral artery flow direction is antegrade. OTHER FINDINGS: 1. Right Brachial Blood pressure: mmHg. 2. Left Brachial Blood pressure: mmHg. IMPRESSION: RIGHT: Duplex scan does not suggest hemodynamically significant stenosis of the right extracranial carotid arteries. LEFT: Duplex scan does not suggest hemodynamically significant stenosis of the left extracranial carotid arteries.
--- NOTE | 2017-04-30 14:32 | MRI ---
PROCEDURE: MRA brain dated 04/30/2017. HISTORY: Cerebral angioma left frontal lobe COMPARISON: Comparison made with CTA of the neck and brain dated 04/28/2017 TECHNIQUE: 3D [id number] MR angiography of the intracranial arteries was performed. Rotating maximum intensity projection images were generated. PROCEDURE: MRA brain dated 04/30/2017 FINDINGS: The current study reveals slight narrowing of the distal internal carotid arteries as they enter the just before and as they enter the petrous canal which is felt to be due to flow related artifact as no significant stenosis seen in these locations on CTA of the neck and brain. The remaining visualized petrous, cavernous and supraclinoid segments are widely patent without evidence of or occlusion or stenosis. Visualized A1 and M1 segments as well as distal branches of the anterior and middle cerebral arteries are unremarkable. No evidence of large aneurysm nor arteriovenous malformation. Note is made of a origin right posterior cerebral artery. The distal vertebral arteries are also widely patent and symmetric. Basilar artery is patent. The visualized posterior cerebral arteries are slightly asymmetric on left-sided which is slightly larger in caliber than the right however this is likely due to origin of the right posterior cerebral artery. . Impression: No evidence of large aneurysm or arteriovenous malformation. If a small cavernoma suspected clinically, consider follow-up of pre and post-contrast MRI of the brain for further evaluation.
--- NOTE | 2017-04-30 17:50 | CP.PCM.PN ---
Subjective - Date & Time of Evaluation Date of Evaluation: 04/30/17 Time of Evaluation: 17:46 - Subjective Subjective: PGY [address] Lo 41 year old female with past medical history of Depression, Migraine Headache, Obesity, High Cholesterol, Hypothyroidism, Marijuana abuse is admitted after experiencing recurrent episodes of syncopal episodes in past 2 weeks. Patient had outpatient MRI done prior to admission which showed "punctate focus of remote hemorrhage vs. small cavernoma in left frontal lobe" (per ED note). Pt is seen and examined at bedside. No acute events overnight. Patient is scheduled from brain MRA today. She denies having any more episodes of syncope during this admission. She does state that when she walks to bathroom, she gets lightheaded. Patient denies having any CP< SOB, abd pain, N/V/D/C, F/C. 12 Point ROS are negative except for the above mentioned. Objective - Vital Signs/Intake and Output Vital Signs (last 24 hours): Temp Pulse Resp BP Pulse Ox 97.9 F 83 20 101/67 99 04/30/17 15:00 04/30/17 15:00 04/30/17 15:00 04/30/17 15:00 04/30/17 15:00 - Medications Medications: Current Medications Aripiprazole (Abilify) 5 mg PO DAILY [facility] Last Admin: 04/30/17 10:53 Dose: 5 mg Cal[place] Carbonate (Oscal) 500 mg PO BID [facility] Last Admin: 04/30/17 10:53 Dose: 500 mg Clonazepam (Klonopin) 2 mg PO HS [facility] Last Admin: 04/29/17 21:49 Dose: 2 mg Ergocalciferol (Drisdol 50,000 Intl Units Cap) 1 cap PO Q7D [facility] Last Admin: 04/29/17 00:24 Dose: 1 cap [place] Carbonate ([place] Carbonate 300mg) 600 mg PO HS [facility] Last Admin: 04/29/17 21:48 Dose: 600 mg Meclizine HCl (Antivert) 25 mg PO Q8 [facility] Last Admin: 04/30/17 14:00 Dose: 25 mg Pantoprazole Sodium (Protonix Ec Tab) 40 mg PO DAILY [facility] Last Admin: 04/30/17 10:53 Dose: 40 mg Rosuvastatin Calcium (Crestor) 10 mg PO HS [facility] Last Admin: 04/29/17 21:49 Dose: 10 mg - Labs Labs: 04/27/17 15:11 04/27/17 15:11 - Constitutional Appears: Non-toxic, No Acute Distress - Head Exam Head Exam: ATRAUMATIC - Eye Exam Eye Exam: EOMI - ENT Exam ENT Exam: Mucous Membranes Moist - Respiratory Exam Respiratory Exam: Clear to Ausculation Bilateral. absent: Accessory Muscle Use , Rales, Rhonchi, Wheezes, Respiratory Distress - Cardiovascular Exam Cardiovascular Exam: REGULAR RHYTHM, +S1, +S2. absent: Gallop, Rubs, Murmur - GI/Abdominal Exam GI & Abdominal Exam: Soft, Normal Bowel Sounds. absent: Distended, Firm, Guarding, Rigid, Tenderness, Organomegaly - Extremities Exam Extremities Exam: absent: Pedal Edema, Tenderness - Neurological Exam Neurological Exam: Alert, Awake, CN II-XII Intact, Oriented x3. absent: Motor Sensory Deficit - Psychiatric Exam Psychiatric exam: Normal Affect, Normal Mood - Skin Skin Exam: Dry, Intact, Normal Color, Warm Assessment and Plan - Assessment and Plan (Free Text) Assessment: Syncope - Neurology, Dr. Garcia is consulted - MRA of brain done today showed no evidence of large aneurysm or AVM - CTA of head and neck done on 04/28 was also negative - Carotid duplex was normal - Will get Echo tomorrow - Vitamin B 12 is 548, Vitamin D is <12.8 TSH 3.27, T4 8.56 T3 1.56. Vitamin B1 and B6 results pending - Antivert 25 mg po q8 [facility] - Lipid panel showed TG 114 Cholesterol 216 LDL 175 HDL 25 - Crestor 10 mg po HS Depression - Continue Abilify and [place] Prophylaxis - Protonix - SCD Orders and management per Dr. Lo
--- NOTE | 2017-04-30 18:33 | CP.PCM.CON ---
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 According to the patient she was feeling fine prior to last Sunday when she started feeling as if the room his room is spinning around her accompanied with severe dizziness and near syncopal episodes were when she went to [facility]. According to the patient she was worked up and subsequently discharged home she continued to have persistent symptoms of dizziness and which was progressively getting worse for which she came to like to the [facility] emergency room. She denies having any chest pain palpitations. Dizziness is both at rest and with movement. Describes it as severe in nature which cannot base which and she is unable to tolerate it. Review of Systems - Review of Systems All systems: reviewed and no additional remarkable complaints except - Constitutional Constitutional: As Per HPI, Lethargy, Malaise - EENT Ears: Ear Pain (ear popping ) Nose/Mouth/Throat: As Per HPI - Cardiovascular Cardiovascular: As Per HPI - Respiratory Respiratory: As Per HPI - Gastrointestinal Gastrointestinal: As Per HPI - Musculoskeletal Musculoskeletal: As Per HPI - Integumentary Integumentary: As Per HPI - Neurological Neurological: As Per HPI - Psychiatric Psychiatric: As Per HPI - Endocrine Endocrine: As Per HPI - Hematologic/Lymphatic Hematologic: As Per HPI Past Patient History - Past Medical History & Family History Pertinent Family History: Mom - HTN Dad - HTN - Past Social History Smoking Status: Current Some Days Smoker Drugs: Cannabis Home Situation {Lives}: With Family - CARDIAC Hx Cardiac Disorders: Yes Other/Comment: 'SLIGHT BLOCKAGE' - PULMONARY Hx Respiratory Disorders: No - NEUROLOGICAL Hx Neurological Disorder: Yes Hx Dizziness: Yes - HEENT Hx HEENT Problems: Yes Other/Comment: WEARS GLASSES - RENAL Hx Chronic Kidney Disease: No - ENDOCRINE/METABOLIC Hx Endocrine Disorders: No - HEMATOLOGICAL/ONCOLOGICAL Hx Blood Disorders: No - INTEGUMENTARY Hx Dermatological Problems: No - MUSCULOSKELETAL/RHEUMATOLOGICAL Hx Musculoskeletal Disorders: No Hx Falls: Yes - GASTROINTESTINAL Hx Gastrointestinal Disorders: No - GENITOURINARY/GYNECOLOGICAL Hx Genitourinary Disorders: No - PSYCHIATRIC Hx Depression: Yes Hx Substance Use: Yes (Marijuana) - SURGICAL HISTORY Hx Appendectomy: Yes - ANESTHESIA Hx Anesthesia: Yes Hx Anesthesia Reactions: No Meds Allergies/Adverse Reactions: Allergies Allergy/AdvReac Type Severity Reaction Status Date / Time No Known Allergies Allergy Verified 04/25/17 13:15 - Medications Medications: Current Medications Aripiprazole (Abilify) 5 mg PO DAILY [facility] Last Admin: 04/30/17 10:53 Dose: 5 mg Calcium Carbonate (Oscal) 500 mg PO BID [facility] Last Admin: 04/30/17 18:04 Dose: 500 mg Clonazepam (Klonopin) 2 mg PO [facility] Last Admin: 04/29/17 21:49 Dose: 2 mg Ergocalciferol (Drisdol 50,000 Intl Units Cap) 1 cap PO Q7D [facility] Last Admin: 04/29/17 00:24 Dose: 1 cap [place] Carbonate ([place] Carbonate 300mg) 600 mg PO [facility] Last Admin: 04/29/17 21:48 Dose: 600 mg Meclizine HCl (Antivert) 25 mg PO Q8 [facility] Last Admin: 04/30/17 14:00 Dose: 25 mg Pantoprazole Sodium (Protonix Ec Tab) 40 mg PO DAILY [facility] Last Admin: 04/30/17 10:53 Dose: 40 mg Rosuvastatin Calcium (Crestor) 10 mg PO [facility] Last Admin: 04/29/17 21:49 Dose: 10 mg Physical Exam - Constitutional Appears: Well, No Acute Distress - Head Exam Head Exam: ATRAUMATIC, NORMAL INSPECTION, NORMOCEPHALIC - Eye Exam Eye Exam: EOMI, Normal appearance, PERRL Pupil Exam: NORMAL ACCOMODATION, PERRL - ENT Exam ENT Exam: Mucous Membranes Moist, Normal Exam - Neck Exam Neck exam: Positive for: Normal Inspection - Respiratory Exam Respiratory Exam: Clear to Auscultation Bilateral, NORMAL BREATHING PATTERN - Cardiovascular Exam Cardiovascular Exam: REGULAR RHYTHM, +S1, +S2, Systolic Murmur - GI/Abdominal Exam GI & Abdominal Exam: Normal Bowel Sounds, Soft. absent: Tenderness - Rectal Exam Rectal Exam: Deferred - Back Exam Back exam: NORMAL INSPECTION - Neurological Exam Neurological exam: Alert, CN II-XII Intact, Normal Gait, Oriented x3, Reflexes Normal - Psychiatric Exam Psychiatric exam: Normal Affect, Normal Mood - Skin Skin Exam: Dry, Intact, Normal Color, Warm Results - Vital Signs Recent Vital Signs: Last Vital Signs Temp 97.9 F 04/30/17 15:00 Pulse 83 04/30/17 15:00 Resp 20 04/30/17 15:00 BP 101/67 04/30/17 15:00 Pulse Ox 99 04/30/17 15:00 - Labs Result Diagrams: 04/27/17 15:11 04/27/17 15:11 Labs: Laboratory Results - last 24 hr 04/28/17 06:36 CLYDE 6 Profile Negative Assessment & Plan (1) Dizziness Assessment and Plan: sx are severe and interfering with her normal life etiology ? 2' to labryinthitis check orthostatics and echo Status: Acute (2) Syncope Assessment and Plan: etiology ? 2' to balance carotids reviewed echo - ordered check orthostatics Status: Acute
--- NOTE | 2017-04-30 22:37 | CP.PCM.PN ---
Subjective - Date & Time of Evaluation Date of Evaluation: 04/30/17 Time of Evaluation: 21:50 - Subjective Subjective: Patient has improvement of her remarkable Vertigo and headache. There is no Syncopal spells since admission. Her Vitamin B12, Folic acid leves are negative, negative She is on Abilify and Alix for a H/O Bipolar Type II MRA Brain is performed today; Impression of MRA Brain: No evidence of large aneurysm or arteriovenous malformation. If a small cavernoma suspected clinically: Consider follow-up of pre and post-contrast MRI of the brain for further evaluation. EEG is Pending. Negative Crotid Doppler Bilaterally. Objective - Vital Signs/Intake and Output Vital Signs (last 24 hours): Temp Pulse Resp BP Pulse Ox 97.9 F 83 20 101/67 99 04/30/17 15:00 04/30/17 15:00 04/30/17 15:00 04/30/17 15:00 04/30/17 15:00 - Medications Medications: Current Medications Aripiprazole (Abilify) 5 mg PO DAILY [facility] Last Admin: 04/30/17 10:53 Dose: 5 mg Calcium Carbonate (Oscal) 500 mg PO BID [facility] Last Admin: 04/30/17 18:04 Dose: 500 mg Clonazepam (Klonopin) 2 mg PO HS [facility] Last Admin: 04/29/17 21:49 Dose: 2 mg Ergocalciferol (Drisdol 50,000 Intl Units Cap) 1 cap PO Q7D [facility] Last Admin: 04/29/17 00:24 Dose: 1 cap [place] Carbonate ([place] Carbonate 300mg) 600 mg PO HS [facility] Last Admin: 04/29/17 21:48 Dose: 600 mg Meclizine HCl (Antivert) 25 mg PO Q8 [facility] Last Admin: 04/30/17 14:00 Dose: 25 mg Pantoprazole Sodium (Protonix Ec Tab) 40 mg PO DAILY [facility] Last Admin: 04/30/17 10:53 Dose: 40 mg Rosuvastatin Calcium (Crestor) 10 mg PO HS [facility] Last Admin: 04/29/17 21:49 Dose: 10 mg - Labs Labs: 04/27/17 15:11 04/27/17 15:11 Assessment and Plan (1) Dizziness Status: Acute (2) Syncope Status: Acute (3) CVA (cerebral vascular accident) Status: Acute (4) Vertigo Status: Acute
[2017-05-01 07:05] LABS: HEMOGLOBIN 12.5 g/dL (11.0-16.0); MEAN CELL VOLUME 85.5 fL (81.0-99.0); MEAN CORPUSCULAR HEMOGLOBIN 27.7 pg (27.0-31.0); MEAN CORPUSCULAR HGB CONC 32.4 g/dL (33.0-37.0); MEAN PLATELET VOLUME 8.5 fL (7.2-11.7); RBC 4.51 Mil/uL (3.80-5.20); RED CELL DISTRIBUTION WIDTH 15.9 % (11.5-14.5); WHITE BLOOD COUNT 9.3 K/uL (4.8-10.8)
[2017-05-01 07:20] LABS: ALBUMIN 3.6 g/dL (3.5-5.0)
[2017-05-01 07:22] LABS: GFR AFRICAN-AMERICAN > 60; GFR NON-AFRICAN AMERICAN > 60
[2017-05-01 07:23] LABS: ALB/GLOB RATIO 1.2 (1.0-2.1); ALT/SGPT 48 U/L (9-52); AST/SGOT 17 U/L (14-36); BLOOD UREA NITROGEN 9 mg/dL (7-17)
[2017-05-01 07:24] LABS: CALCIUM 9.2 mg/dl (8.6-10.4)
[2017-05-01 08:29] VITALS: BP 98/65; RESP 18; TEMP 98; O2SAT 96
--- NOTE | 2017-05-01 09:57 | CP.PCM.PN ---
Subjective - Date & Time of Evaluation Date of Evaluation: 05/01/17 Time of Evaluation: 09:15 - Subjective Subjective: PGY [address] Lo Patient seen and examined at bedside this AM. No acute events overnight. She denies having any more episodes of syncope during this admission. She does state that when she walks to bathroom, she gets lightheaded. Patient reports ear popping sensation frequently, feeling her ears are clogged and not being able to hold the phone directly to her ear. Patient denies having any CP< SOB, abd pain, N/V/D/C, F/C. 12 Point ROS are negative except for the above mentioned. Objective - Vital Signs/Intake and Output Vital Signs (last 24 hours): Temp Pulse Resp BP Pulse Ox 98 F 86 18 98/65 L 96 05/01/17 08:28 05/01/17 08:28 05/01/17 08:28 05/01/17 08:28 05/01/17 08:28 - Medications Medications: Current Medications Aripiprazole (Abilify) 5 mg PO DAILY [facility] Last Admin: 04/30/17 10:53 Dose: 5 mg Calcium Carbonate (Oscal) 500 mg PO BID [facility] Last Admin: 04/30/17 18:04 Dose: 500 mg Clonazepam (Klonopin) 2 mg PO [facility] Last Admin: 04/30/17 22:52 Dose: 2 mg Ergocalciferol (Drisdol 50,000 Intl Units Cap) 1 cap PO Q7D [facility] Last Admin: 04/29/17 00:24 Dose: 1 cap [place] Carbonate ([place] Carbonate 300mg) 600 mg PO [facility] Last Admin: 04/30/17 22:52 Dose: 600 mg Meclizine HCl (Antivert) 25 mg PO Q8 [facility] Last Admin: 05/01/17 06:20 Dose: 25 mg Pantoprazole Sodium (Protonix Ec Tab) 40 mg PO DAILY [facility] Last Admin: 04/30/17 10:53 Dose: 40 mg Rosuvastatin Calcium (Crestor) 10 mg PO [facility] Last Admin: 04/30/17 22:52 Dose: 10 mg - Labs Labs: 05/01/17 06:54 05/01/17 06:54 - Constitutional Appears: Non-toxic, No Acute Distress - Head Exam Head Exam: NORMAL INSPECTION - Eye Exam Eye Exam: EOMI - ENT Exam ENT Exam: Mucous Membranes Moist - Respiratory Exam Respiratory Exam: Clear to Ausculation Bilateral, NORMAL BREATHING PATTERN. absent: Rales, Rhonchi, Wheezes - Cardiovascular Exam Cardiovascular Exam: REGULAR RHYTHM, +S1, +S2. absent: Gallop, Rubs, Murmur - GI/Abdominal Exam GI & Abdominal Exam: Soft, Normal Bowel Sounds. absent: Tenderness - Extremities Exam Extremities Exam: absent: Pedal Edema - Neurological Exam Neurological Exam: Alert, Awake, Oriented x3 - Psychiatric Exam Psychiatric exam: Normal Affect, Normal Mood - Skin Skin Exam: Normal Color, Warm Assessment and Plan - Assessment and Plan (Free Text) Assessment: Syncope - Neurology, Dr. Garcia, consulted - help appreciated - Cardiology, Dr. Johnson, consulted - help appreciated - ENT consult - Dr. Lance - f/u recommendations - MRA of brain done today showed no evidence of large aneurysm or AVM - CTA of head and neck done on 04/28 was also negative - Carotid duplex was normal - Orthostatics normal - possible labrynthitis per Dr. Johnson - F/U ECHO - F/U EEG - F/u lyme - Vitamin B 12 is 548, Vitamin D is <12.8 TSH 3.27, T4 8.56 T3 1.56. Vitamin B1 and B6 results pending - Antivert 25 mg po q8 - ergocalciferol 08477L PO Q7D [facility] - Lipid panel showed TG 114 Cholesterol 216 LDL 175 HDL 25 - Crestor 10 mg po HS Depression - Continue Abilify and Willcox Prophylaxis - Protonix - SCD Orders and management per Dr. Lo
[2017-05-01] MEDS: Pantoprazole 40 mg EC Tab PO SCH (10:15)
--- NOTE | 2017-05-01 12:23 | CP.PCM.PN ---
Subjective - Date & Time of Evaluation Date of Evaluation: 05/01/17 Time of Evaluation: 13:20 - Subjective Subjective: clinically same Objective - Vital Signs/Intake and Output Vital Signs (last 24 hours): Temp Pulse Resp BP Pulse Ox 98 F 86 18 98/65 L 96 05/01/17 08:28 05/01/17 08:28 05/01/17 08:28 05/01/17 08:28 05/01/17 08:28 - Medications Medications: Current Medications Aripiprazole (Abilify) 5 mg PO DAILY [facility] Last Admin: 05/01/17 10:15 Dose: 5 mg Calcium Carbonate (Oscal) 500 mg PO BID [facility] Last Admin: 05/01/17 10:15 Dose: 500 mg Clonazepam (Klonopin) 2 mg PO [facility] Last Admin: 04/30/17 22:52 Dose: 2 mg Ergocalciferol (Drisdol 50,000 Intl Units Cap) 1 cap PO Q7D [facility] Last Admin: 04/29/17 00:24 Dose: 1 cap [place] Carbonate ([place] Carbonate 300mg) 600 mg PO [facility] Last Admin: 04/30/17 22:52 Dose: 600 mg Meclizine HCl (Antivert) 25 mg PO Q8 [facility] Last Admin: 05/01/17 06:20 Dose: 25 mg Pantoprazole Sodium (Protonix Ec Tab) 40 mg PO DAILY [facility] Last Admin: 05/01/17 10:15 Dose: 40 mg Rosuvastatin Calcium (Crestor) 10 mg PO [facility] Last Admin: 04/30/17 22:52 Dose: 10 mg - Labs Labs: 05/01/17 06:54 05/01/17 06:54 - Constitutional Appears: Well - Head Exam Head Exam: ATRAUMATIC, NORMAL INSPECTION, NORMOCEPHALIC - Eye Exam Eye Exam: EOMI, Normal appearance, PERRL Pupil Exam: NORMAL ACCOMODATION, PERRL - ENT Exam ENT Exam: Mucous Membranes Moist, Normal Exam - Neck Exam Neck Exam: Full ROM, Normal Inspection. absent: Lymphadenopathy - Respiratory Exam Respiratory Exam: Decreased Breath Sounds - Cardiovascular Exam Cardiovascular Exam: REGULAR RHYTHM, +S1 - GI/Abdominal Exam GI & Abdominal Exam: Soft, Diminished Bowel Sounds - Rectal Exam Rectal Exam: Deferred
[2017-05-01 13:30] VITALS: PULSE 88
--- NOTE | 2017-05-01 16:45 | CP.PCM.PN ---
Subjective - Date & Time of Evaluation Date of Evaluation: 05/01/17 Time of Evaluation: 12:30 - Subjective Subjective: dizziness improving with antivert Objective - Vital Signs/Intake and Output Vital Signs (last 24 hours): Temp Pulse Resp BP Pulse Ox 98 F 88 18 98/65 L 96 05/01/17 08:28 05/01/17 13:24 05/01/17 08:28 05/01/17 08:28 05/01/17 08:28 - Medications Medications: Current Medications Aripiprazole (Abilify) 5 mg PO DAILY [facility] Last Admin: 05/01/17 10:15 Dose: 5 mg Calcium Carbonate (Oscal) 500 mg PO BID [facility] Last Admin: 05/01/17 10:15 Dose: 500 mg Clonazepam (Klonopin) 2 mg PO [facility] Last Admin: 04/30/17 22:52 Dose: 2 mg Ergocalciferol (Drisdol 50,000 Intl Units Cap) 1 cap PO Q7D [facility] Last Admin: 04/29/17 00:24 Dose: 1 cap [place] Carbonate ([place] Carbonate 300mg) 600 mg PO [facility] Last Admin: 04/30/17 22:52 Dose: 600 mg Meclizine HCl (Antivert) 25 mg PO Q8 [facility] Last Admin: 05/01/17 13:19 Dose: 25 mg Pantoprazole Sodium (Protonix Ec Tab) 40 mg PO DAILY [facility] Last Admin: 05/01/17 10:15 Dose: 40 mg Rosuvastatin Calcium (Crestor) 10 mg PO [facility] Last Admin: 04/30/17 22:52 Dose: 10 mg - Labs Labs: 05/01/17 06:54 05/01/17 06:54 - Constitutional Appears: Well - Head Exam Head Exam: ATRAUMATIC, NORMAL INSPECTION, NORMOCEPHALIC - Eye Exam Eye Exam: EOMI, Normal appearance, PERRL Pupil Exam: NORMAL ACCOMODATION, PERRL - ENT Exam ENT Exam: Mucous Membranes Moist, Normal Exam - Neck Exam Neck Exam: Full ROM, Normal Inspection. absent: Lymphadenopathy - Respiratory Exam Respiratory Exam: Clear to Ausculation Bilateral, NORMAL BREATHING PATTERN - Cardiovascular Exam Cardiovascular Exam: REGULAR RHYTHM, +S1, +S2. absent: Murmur - GI/Abdominal Exam GI & Abdominal Exam: Soft, Normal Bowel Sounds. absent: Tenderness - Extremities Exam Extremities Exam: Full ROM, Normal Capillary Refill, Normal Inspection. absent : Joint Swelling, Pedal Edema - Neurological Exam Neurological Exam: Alert, Awake, CN II-XII Intact, Normal Gait, Oriented x3 - Psychiatric Exam Psychiatric exam: Normal Affect, Normal Mood - Skin Skin Exam: Dry, Intact, Normal Color, Warm Assessment and Plan (1) Dizziness Assessment & Plan: improving most likely 2' to labyrinthitis cont with antivert echo reviewed - normal LVEF Status: Acute (2) Syncope Assessment & Plan: 2' to dizziness echo reviewed normal f/u as outpt Status: Acute
--- NOTE | 2017-05-01 22:16 | CP.PCM.PN ---
Subjective - Date & Time of Evaluation Date of Evaluation: 05/01/17 Time of Evaluation: 16:00 - Subjective Subjective: Patient was stable until discharged, she was sent for MRI Brain and EEG. She was discharged without significant CAMACHO or any witnessed Seizures. She will be followed as an outpatient. Objective - Vital Signs/Intake and Output Vital Signs (last 24 hours): Temp Pulse Resp BP Pulse Ox 98 F 88 18 98/65 L 96 05/01/17 08:28 05/01/17 13:24 05/01/17 08:28 05/01/17 08:28 05/01/17 08:28 - Labs Labs: 05/01/17 06:54 05/01/17 06:54 Assessment and Plan (1) Dizziness Status: Acute (2) Syncope Status: Acute (3) CVA (cerebral vascular accident) Status: Acute (4) Vertigo Status: Acute
--- NOTE | 2017-05-03 10:01 | EEG ---
DATE: 04/30/2017 Record was obtained for a history of rule out seizures. The patient has a history of syncopal spells and record was obtained while the patient was awake. The record was symmetrically equal on both sides with a velocity of 8 cycles per second. The waves were fairly well formed, fairly organized with posterior distribution, moderate in amplitude and reactive to eye opening. There was no abnormal discharges. No spikes, polyspikes, sharp waves, focal slowing or paroxysmal discharges. Photic stimulation was performed and did not show any changes. The hyperventilation was omitted. There were no periods of drowsiness. There were no periods of sleep. There were eye movement artifact, electrode artifact, and muscle movement artifact. In summary, this was normal awake EEG. Clinical correlation was recommended. Veronica Garcia MD
--- NOTE | 2017-05-03 15:29 | CARD ---
APPROVED REPORT EXAM: Two-dimensional and M-mode echocardiogram with Doppler and color Doppler. Other Information Quality : GoodRhythm : NSR INDICATION CVA/TIA Dizziness and Vertigo Syncope VERTIGO M-Mode DIMENSIONS RVDd1.73 (2.1-3.2cm)Left Atrium (MM)3.19 (2.5-4.0cm) IVSd0.91 (0.7-1.1cm)Aortic Root2.76 (2.2-3.7cm) LVDd4.77 (4.0-5.6cm)Aortic Cusp Exc.2.13 (1.5-2.0cm) PWd0.85 (0.7-1.1cm)FS (%) 28 % LVDs3.43 (2.0-3.8cm)LVEF (%)54 (>50%) Mitral Valve MV E Yvcmwgtf47.8cm/sMV A Izkxzhor38.5cm/sE/A ratio1.1 TDI E/Lateral E'0.0E/Medial E'0.0 <Conclusion> normal size la,lv & ra rv. normal lv wall motion,thickness,systolic & diastolic function with lvef of 60-65%. normal aortic,mitral,tv & pv. mild pi. normal size aortic root & ivc. small posterior pericardial effusion is noted.
[2017-05-04 11:55] LABS: 23 KD (IGG) BAND Nonreactive
== END 2017-05-01 16:40 | disposition home or self-care (01) | DRG 149 ==
LOC: C.ER 14:14 → C.9E 14:52 → C.6T 15:50 → C.9E 15:52 → C.6T 17:12
PROVIDERS: ADMIT Internal Medicine Nephrology; ATTEND Internal Medicine Nephrology
DX: H81.10 Benign paroxysmal vertigo, unspecified ear (principal); E55.9 Vitamin D deficiency, unspecified; R55 Syncope and collapse; E03.9 Hypothyroidism, unspecified; F17.210 Nicotine dependence, cigarettes, uncomplicated; G43.909 Migraine, unspecified, not intractable, without status migrainosus; F12.10 Cannabis abuse, uncomplicated; E78.00 Pure hypercholesterolemia, unspecified; E66.9 Obesity, unspecified; F31.9 Bipolar disorder, unspecified; H83.09 Labyrinthitis, unspecified ear

== ENCOUNTER 2017-05-28 19:24 | Observation (INO) | payer OTHER, MEDICARE ==
[2017-05-28 19:24] VITALS: BMI 36.0
[2017-05-28 20:55] LABS: BASO # 0.1 K/uL (0.0-0.2); BASO % 0.7 % (0.0-2.0); EOS # 0.4 K/uL (0.0-0.7); EOS % 3.8 % (0.0-4.0); HEMATOCRIT 35.2 % (34.0-47.0); LYMPH # 3.1 K/uL (1.0-4.3); LYMPH % 33.2 % (20.0-40.0); MEAN CELL VOLUME 84.4 fL (81.0-99.0); MEAN CORPUSCULAR HEMOGLOBIN 27.6 pg (27.0-31.0); MEAN CORPUSCULAR HGB CONC 32.7 g/dL (33.0-37.0); MEAN PLATELET VOLUME 8.2 fL (7.2-11.7); MONO # 0.6 K/uL (0.0-0.8); MONO % 6.6 % (0.0-10.0); NRBC % 0.1 % (0.0-2.0); RED CELL DISTRIBUTION WIDTH 15.2 % (11.5-14.5); WHITE BLOOD COUNT 9.3 K/uL (4.8-10.8)
[2017-05-28 21:01] LABS: CHLORIDE 105 mmol/L (98-107)
[2017-05-28 21:02] LABS: SODIUM 137 mmol/L (132-148)
[2017-05-28 21:03] LABS: POTASSIUM 3.3 mmol/L (3.6-5.2)
[2017-05-28 21:05] LABS: ALB/GLOB RATIO 1.3 (1.0-2.1); ALKALINE PHOSPHATASE 79 U/L (38-126); ALT/SGPT 39 U/L (9-52); AST/SGOT 20 U/L (14-36); BILIRUBIN,TOTAL 0.4 mg/dL (0.2-1.3); BLOOD UREA NITROGEN 6 mg/dL (7-17); CARBON DIOXIDE 22 mmol/L (22-30); GFR AFRICAN-AMERICAN > 60; GLUCOSE,RANDOM 83 mg/dL (65-105); TOTAL PROTEIN 6.5 g/dL (6.3-8.3)
[2017-05-28 21:06] LABS: CALCIUM 9.1 mg/dl (8.6-10.4)
--- NOTE | 2017-05-28 21:36 | C.PDOC ---
History Of Present Illness 41 y/o female presents to ED with complaints of intermittent left sided chest pain starting earlier today radiating to left arm and associated mild sob when pain occurs. Patient reports she has a catheterization 6 months ago that showed small blockage. Patient states [employer] she took Aspirin 624mg at home with relief of pain. Patient denies fever, chills, nausea, vomiting, cough or any other complaints at this time. Time Seen by Provider: 05/28/17 20:02 Chief Complaint (Nursing): Chest Pain History Per: Patient History/Exam Limitations: no limitations Onset/Duration Of Symptoms: Intermittent Episodes Current Symptoms Are (Timing): Still Present Past Medical History Reviewed: Historical Data, Nursing Documentation, Vital Signs Vital Signs: Last Vital Signs Temp Pulse 80 05/29/17 00:20 Resp 14 05/29/17 00:20 BP 104/58 L 05/29/17 00:20 Pulse Ox 99 05/29/17 00:20 - Medical History PMH: Bipolar Disorder, Depression Surgical History: Appendectomy Family History: States: Unknown Family Hx - Social History Hx Alcohol Use: No Hx Substance Use: Yes - Immunization History Hx Influenza Vaccination: No Review Of Systems Except As Marked, All Systems Reviewed And Found Negative. Constitutional: Negative for: Fever, Chills Cardiovascular: Positive for: Chest Pain. Negative for: Palpitations Respiratory: Positive for: Shortness of Breath. Negative for: Cough Gastrointestinal: Negative for: Nausea, Vomiting Musculoskeletal: Positive for: Arm Pain Skin: Negative for: Rash Physical Exam - Physical Exam Appears: Non-toxic, No Acute Distress Skin: Normal Color, Warm, Dry, No Rash Head: Atraumatic, Normacephalic Eye(s): bilateral: Normal Inspection, EOMI Oral Mucosa: Moist Neck: Normal ROM, Supple Chest: Symmetrical Cardiovascular: Rhythm Regular Respiratory: Normal Breath Sounds, No Rales, No Rhonchi, No Wheezing Gastrointestinal/Abdominal: Soft, No Tenderness, No Guarding, No Rebound Extremity: Normal ROM, Capillary Refill (<2 seconds) Neurological/Psych: Oriented x3 ED Course And Treatment - Laboratory Results Result Diagrams: 05/28/17 20:46 05/28/17 20:46 ECG: Interpreted By Me, Viewed By Me ECG Rhythm: Sinus Rhythm ECG Interpretation: Normal Interpretation Of ECG: No access, No intervals Rate From EC (bpm) O2 Sat by Pulse Oximetry: 100 (RA) Medical Decision Making Medical Decision Making: Discussed with , will accept patient to his service in Obs-tele Disposition - Disposition Disposition Time: 21:20 Condition: STABLE - Clinical Impression Clinical Impression: Chest pain - Scribe Statement The provider has reviewed the documentation as recorded by the Scribe Noman Lord All medical record entries made by the Garyibe were at my direction and personally dictated by me. I have reviewed the chart and agree that the record accurately reflects my personal performance of the history, physical exam, medical decision making, and the department course for this patient. I have also personally directed, reviewed, and agree with the discharge instructions and disposition.
[2017-05-28] MEDS ORDERED: Potassium Chloride 20 mEq/15 ml LIQ UD PO STA (23:25)
[2017-05-29] MEDS ORDERED: Potassium Chloride 20 mEq/15 ml LIQ UD ONE (01:27)
--- NOTE | 2017-05-29 09:50 | RAD ---
HISTORY: chest pain COMPARISON: Chest x-ray performed 04/27/17. TECHNIQUE: Chest, one view. FINDINGS: Examination limited by habitus. LUNGS: No focal consolidation. Please note that chest x-ray has limited sensitivity for the detection of pulmonary masses. PLEURA: No significant pleural effusion identified. No definite pneumothorax . CARDIOVASCULAR: The cardiomediastinal silhouette appears within normal limits of size. OSSEOUS STRUCTURES: No acute osseous abnormality identified. VISUALIZED UPPER ABDOMEN: Unremarkable. OTHER FINDINGS: None. IMPRESSION: No focal consolidation, significant pleural effusion, or definite pneumothorax identified.
[2017-05-29 10:36] VITALS: RESP 20
--- NOTE | 2017-05-29 15:58 | CP.PCM.CON ---
History of Present Illness - History of Present Illness History of Present Illness: 41 y/o presents with CP Cardiac history: * C. Cath [facility] [place]: non-obstructive CAD, * Known Normal LVEF by echo directly seen by me 04/2017 PMHX: * HTN chronic labile, LIPIDS chronic labile, Bipolar disorder PSHX: * Gall bladder SOCHX: * Smoker current, no IVDA or ETOH abuse FamHX: No premature CAD ROS: All 12 systems reviewed by me and negative except that in HPI Review of Systems - Review of Systems All systems: reviewed and no additional remarkable complaints except Past Patient History - Past Medical History & Family History Past Medical History?: Yes - Past Social History Smoking Status: Light Smoker < 10 Cigarettes Daily - CARDIAC Hx Cardiac Disorders: Yes Other/Comment: 'SLIGHT BLOCKAGE' - PULMONARY Hx Respiratory Disorders: No - NEUROLOGICAL Hx Neurological Disorder: Yes Hx Dizziness: Yes - HEENT Hx HEENT Problems: Yes Other/Comment: WEARS GLASSES - RENAL Hx Chronic Kidney Disease: No - ENDOCRINE/METABOLIC Hx Endocrine Disorders: No - HEMATOLOGICAL/ONCOLOGICAL Hx Blood Disorders: No - INTEGUMENTARY Hx Dermatological Problems: No - MUSCULOSKELETAL/RHEUMATOLOGICAL Hx Musculoskeletal Disorders: No Hx Falls: No - GASTROINTESTINAL Hx Gastrointestinal Disorders: No - GENITOURINARY/GYNECOLOGICAL Hx Genitourinary Disorders: No - PSYCHIATRIC Hx Bipolar Disorder: Yes Hx Depression: Yes Hx Substance Use: Yes Other/Comment: No longer substance abuse - SURGICAL HISTORY Hx Appendectomy: Yes - ANESTHESIA Hx Anesthesia: Yes Hx Anesthesia Reactions: No Meds Allergies/Adverse Reactions: Allergies Allergy/AdvReac Type Severity Reaction Status Date / Time No Known Allergies Allergy Verified 04/25/17 13:15 - Medications Medications: Current Medications Aripiprazole (Abilify) [address] [facility] Last Admin: 05/29/17 10:57 Dose: 5 mg Aspirin (Ecotrin) [address] [facility] Last Admin: 05/29/17 10:57 Dose: 81 mg Clonazepam (Klonopin) 0.5 mg PO TID PRN PRN Reason: Anxiety Heparin Sodium (Porcine) (Heparin) 5,[address] [facility] Last Admin: 05/29/17 13:29 Dose: 5,000 units Rosuvastatin Calcium (Crestor) [address] [facility] Physical Exam - Constitutional Appears: No Acute Distress - Head Exam Head Exam: ATRAUMATIC, NORMAL INSPECTION - Eye Exam Eye Exam: EOMI, Normal appearance, PERRL - ENT Exam ENT Exam: Mucous Membranes Moist, Normal Oropharynx - Neck Exam Neck exam: Positive for: Normal Inspection - Respiratory Exam Respiratory Exam: Clear to Auscultation Bilateral, NORMAL BREATHING PATTERN - Cardiovascular Exam Cardiovascular Exam: REGULAR RHYTHM, +S1, +S2. absent: +S4, Systolic Murmur - GI/Abdominal Exam GI & Abdominal Exam: Soft. absent: Tenderness - Extremities Exam Extremities exam: Positive for: normal inspection. Negative for: calf tenderness, pedal edema - Neurological Exam Neurological exam: Alert, CN II-XII Intact, Oriented x3 - Psychiatric Exam Psychiatric exam: Normal Affect, Normal Mood - Skin Skin Exam: Normal Color, Warm Results - Vital Signs Recent Vital Signs: Last Vital Signs Temp 98.2 F 05/29/17 10:36 Pulse 61 05/29/17 12:00 Resp 20 05/29/17 10:36 BP 99/69 L 05/29/17 10:36 Pulse Ox 96 05/29/17 10:36 - Labs Result Diagrams: 05/28/17 20:46 05/28/17 20:46 Labs: Laboratory Results - last 24 hr 05/29/17 05/29/17 03:02 13:54 Total Creatine Kinase 196 H 159 H CK-MB (Mass) 0.38 0.32 Troponin I, Quant < 0.0120 < 0.0120 - EKG Data EKG Interpreted by: Myself EKG shows normal: Sinus rhythm Rate: Normal Assessment & Plan - Assessment and Plan (Free Text) Assessment: Chest pain is atypical non cardiac LA ruled out by troponin x2 negative EKG is normal without any acute ischemic changes Echo EF has been known to be normal C.CAth known non-obstructive CAD Oct 2016 H/H: WNL Creat WNL K+; minimally reduced at 3.3 Urine tox: + cannibinoids LDL has been elevated ~150-170's in past Plan: ASA 81 Crestor 20 Ranexa 500 BID D/C planning and f/u with Dr. Zhang as outpatient for cardiac re-eval.
[2017-05-29 16:05] VITALS: BP 102/67; PULSE 67; TEMP 98; O2SAT 95
[2017-05-29] MEDS ORDERED: Potassium Chloride 20 mEq ER Tab PO SCH (17:00)
--- NOTE | 2017-05-29 17:07 | CP.PCM.PN ---
Subjective - Date & Time of Evaluation Date of Evaluation: 05/29/17 Time of Evaluation: 11:00 - Subjective Subjective: Patient seen today, chest pain resolved , denies any chest pain, sob, palpitations troponin x3 - negative No overnight events recorded on monitor Objective - Vital Signs/Intake and Output Vital Signs (last 24 hours): Temp Pulse Resp BP Pulse Ox 98 F 67 20 102/67 95 05/29/17 16:03 05/29/17 16:03 05/29/17 16:03 05/29/17 16:03 05/29/17 16:03 Intake and Output: 05/29/17 05/29/17 06:59 18:59 Intake Total 500 Balance 500 - Medications Medications: Current Medications Aripiprazole (Abilify) 5 mg PO DAILY [facility] Last Admin: 05/29/17 10:57 Dose: 5 mg Aspirin (Ecotrin) 81 mg PO DAILY [facility] Last Admin: 05/29/17 10:57 Dose: 81 mg Clonazepam (Klonopin) 0.5 mg PO TID PRN PRN Reason: Anxiety Heparin Sodium (Porcine) (Heparin) 5,000 units SC Q8 [facility] Last Admin: 05/29/17 13:29 Dose: 5,000 units Rosuvastatin Calcium (Crestor) 10 mg PO HS [facility] Assessment and Plan - Assessment and Plan (Free Text) Assessment: 41 yr old female admitted for Chest pain troponin x3 negative chest pain is atypical non cardiac EKG is normal without any acute ischemic changes K+t 3.3, pottassium replaced Urine tox: + cannibinoids seen by rosita Shook for discharge from cardiology standpoint and f/u with Dr. Zhang as outpatient next sun. for cardiac re-eval continue ASA 81 Crestor 20 Ranexa 500 BID\D/W With Dr. Combs cleared for discharge home today Discharge plan discussed with patient who understands an d agrees with plan Patient instructed to returns to ED if symptoms returns
--- NOTE | 2017-05-29 18:30 | CARD ---
APPROVED REPORT EKG Measurement Heart [id number] <Conclusion> Normal sinus rhythm Normal ECG
--- NOTE | 2017-05-29 22:54 | CP.PCM.HP ---
History of Present Illness - History of Present Illness History of Present Illness: 41 y/o with questionable cad, she has nitro at home, she is non smoker, non etoh, non dm and she had chest pain on the day of admission and she is admitted , now no chest pain, no sob Present on Admission - Present on Admission Any Indicators Present on Admission: No History of DVT/PE: No History of Uncontrolled Diabetes: No Urinary Catheter: No Decubitus Ulcer Present: No Review of Systems - Constitutional Constitutional: Fatigue - Cardiovascular Cardiovascular: Chest Pain, Radiating Pain Past Patient History - Past Medical History & Family History Past Medical History?: Yes - Past Social History Smoking Status: Light Smoker < 10 Cigarettes Daily - CARDIAC Hx Cardiac Disorders: Yes Other/Comment: 'SLIGHT BLOCKAGE' - PULMONARY Hx Respiratory Disorders: No - NEUROLOGICAL Hx Neurological Disorder: Yes Hx Dizziness: Yes - HEENT Hx HEENT Problems: Yes Other/Comment: WEARS GLASSES - RENAL Hx Chronic Kidney Disease: No - ENDOCRINE/METABOLIC Hx Endocrine Disorders: No - HEMATOLOGICAL/ONCOLOGICAL Hx Blood Disorders: No - INTEGUMENTARY Hx Dermatological Problems: No - MUSCULOSKELETAL/RHEUMATOLOGICAL Hx Musculoskeletal Disorders: No Hx Falls: No - GASTROINTESTINAL Hx Gastrointestinal Disorders: No - GENITOURINARY/GYNECOLOGICAL Hx Genitourinary Disorders: No - PSYCHIATRIC Hx Bipolar Disorder: Yes Hx Depression: Yes Hx Substance Use: Yes Other/Comment: No longer substance abuse - SURGICAL HISTORY Hx Appendectomy: Yes - ANESTHESIA Hx Anesthesia: Yes Hx Anesthesia Reactions: No Meds Home Medications: Home Medication List Medication Instructions Recorded Confirmed Type Aspirin [Ecotrin] 81 mg PO DAILY #30 05/29/17 Rx Ranolazine [Ranexa] 500 mg PO BID #60 ter 05/29/17 Rx Rosuvastatin Calcium [Crestor] 20 mg PO HS #30 tab 05/29/17 Rx Allergies/Adverse Reactions: Allergies Allergy/AdvReac Type Severity Reaction Status Date / Time No Known Allergies Allergy Verified 04/25/17 13:15 Physical Exam - Constitutional Appears: Non-toxic, No Acute Distress - Head Exam Head Exam: ATRAUMATIC, NORMAL INSPECTION, NORMOCEPHALIC - Eye Exam Eye Exam: EOMI, Normal appearance, PERRL Pupil Exam: NORMAL ACCOMODATION - ENT Exam ENT Exam: Mucous Membranes Moist, Normal Exam - Neck Exam Neck exam: Positive for: Normal Inspection - Respiratory Exam Respiratory Exam: Clear to Auscultation Bilateral, NORMAL BREATHING PATTERN - Cardiovascular Exam Cardiovascular Exam: REGULAR RHYTHM, +S1, +S2 - GI/Abdominal Exam GI & Abdominal Exam: Normal Bowel Sounds - Rectal Exam Rectal Exam: NORMAL INSPECTION - Back Exam Back exam: NORMAL INSPECTION - Neurological Exam Neurological exam: Alert, CN II-XII Intact, Normal Gait, Oriented x3, Reflexes Normal Results - Vital Signs Recent Vital Signs: Last Vital Signs Temp 98 F 05/29/17 16:03 Pulse 67 05/29/17 16:03 Resp 20 05/29/17 16:03 BP 102/67 05/29/17 16:03 Pulse Ox 95 05/29/17 16:03 - Labs Result Diagrams: 05/28/17 20:46 05/28/17 20:46 Labs: Laboratory Results - last 24 hr 05/29/17 05/29/17 03:02 13:54 Total Creatine Kinase 196 H 159 H CK-MB (Mass) 0.38 0.32 Troponin I, Quant < 0.0120 < 0.0120 Assessment & Plan (1) Chest pain Assessment and Plan: ruled out ami d/w dr cruz, discharge patient Status: Acute Priority: High
--- NOTE | 2017-06-02 18:25 | CARD ---
APPROVED REPORT EKG Measurement Heart [id number] [place] 156P2 [id number] <Conclusion> Normal sinus rhythm Normal ECG
== END 2017-05-29 18:45 | disposition home or self-care (01) ==
LOC: C.ER 19:24 → C.9E 21:38 → C.5T 05-29 09:47
PROVIDERS: ADMIT Internal Medicine; ATTEND Internal Medicine
DX: R07.89 Other chest pain (principal); I25.10 Atherosclerotic heart disease of native coronary artery without angina pectoris; I10 Essential (primary) hypertension; F31.9 Bipolar disorder, unspecified; F17.200 Nicotine dependence, unspecified, uncomplicated
CPT/HCPCS: 71010; 80053; 84484; 85025; 93005; 96372; 99285; G0378; J1644